=== PATIENT | female | born 1945 | race Caucasian/White ===

== ENCOUNTER → 2018-10-24 | Outpatient (CLI) | payer MEDICARE, OTHER | END | disposition home or self-care (01) | LOC: Rad HDHVI 12:53 | PROVIDERS: ATTEND Internal Medicine | DX: I07.1 Rheumatic tricuspid insufficiency (principal); I11.9 Hypertensive heart disease without heart failure | CPT/HCPCS: 93306 ==

== ENCOUNTER → 2018-11-16 | Outpatient (CLI) | payer MEDICARE, OTHER ==
--- NOTE | 2018-11-16 14:39 | NUR ---
Patient unable to lay on back for images. Study cancelled
[2018-11-16 16:01] LABS: Basophils # (auto) 0.1 uL; Basophils % (auto) 0.8 % (0.0-2.0); Eosinophils # (auto) 0.1 uL; Eosinophils % (auto) 1.3 % (0.0-7.0); Hematocrit 49.7 % (36.0-46.0); Hemoglobin 16.6 g/dL (12.2-16.2); Lymphocytes # (auto) 2.8 uL; Lymphocytes % (auto) 40.5 % (10.0-50.0); Mean Corpuscular Hemoglobin 31.1 pg (28.0-32.0); Mean Corpuscular Hgb Conc. 33.5 g/dL (32.0-36.0); Mean Corpuscular Volume 92.9 fL (80.0-100.0); Monocytes # (auto) 0.7 uL; Monocytes % (auto) 10.7 % (0.0-12.0); Neutrophils # (auto) 3.2 uL; Neutrophils % (auto) 46.7 % (37.0-80.0); Nucleated Red Blood Cells % 0.1 %; Platelet Count (auto) 312 10^3/uL (140-450); Red Blood Cells 5.35 10^6/uL (4.0-5.20); Red Cell Distribution Width 12.6 % (11.8-14.3); White Blood Cell 6.9 10^3/uL (4.4-10.8)
[2018-11-16 16:11] LABS: BUN/Creatinine Ratio 14.5; Calcium 9.7 mg/dL (8.5-10.1); Potassium 3.9 mmol/L (3.5-5.1)
[2018-11-16 16:14] LABS: Bilirubin, Total 0.4 mg/dL (0.2-1.0)
[2018-11-16 16:32] LABS: Urine Blood Negative /uL (Negative); Urine Specific Gravity 1.003 (1.001-1.035)
[2018-11-16 18:47] LABS: Free T4 (Free Thyroxine) 0.89 ng/dL (0.89-1.76)
== END | disposition home or self-care (01) ==
LOC: Rad HDHVI 13:51
PROVIDERS: ATTEND Internal Medicine
DX: E55.9 Vitamin D deficiency, unspecified (principal); E03.9 Hypothyroidism, unspecified; D51.9 Vitamin B12 deficiency anemia, unspecified; N39.0 Urinary tract infection, site not specified; Z79.899 Other long term (current) drug therapy
CPT/HCPCS: 36415; 80053; 80061; 81003; 82306; 82607; 83036; 84439; 84443; 85025

== ENCOUNTER → 2019-07-31 | Outpatient (CLI) | payer MEDICARE, OTHER ==
[2019-07-31 15:53] LABS: Urine Blood Negative /uL (Negative); Urine Specific Gravity 1.015 (1.001-1.035)
[2019-07-31 15:55] LABS: Basophils # (auto) 0.1 10 ^3/uL (0-0.2); Eosinophils # (auto) 0.1 10 ^3/uL (0-0.8); Eosinophils % (auto) 1.6 % (0.0-7.0); Hematocrit 47.4 % (36.0-46.0); Hemoglobin 15.7 g/dL (12.2-16.2); Lymphocytes # (auto) 2.5 10 ^3/uL (0.4-5.4); Lymphocytes % (auto) 41.7 % (10.0-50.0); Mean Corpuscular Hgb Conc. 33.2 g/dL (32.0-36.0); Mean Corpuscular Volume 90.6 fL (80.0-100.0); Monocytes # (auto) 0.7 10 ^3/uL (0-1.3); Monocytes % (auto) 12.3 % (0.0-12.0); Neutrophils # (auto) 2.6 10 ^3/uL (1.6-8.6); Neutrophils % (auto) 43.4 % (37.0-80.0); Nucleated Red Blood Cells % 0.1 %; Platelet Count (auto) 252 10^3/uL (140-450); Red Blood Cells 5.23 10^6/uL (4.0-5.20); Red Cell Distribution Width 14.2 % (11.8-14.3)
[2019-07-31 16:06] LABS: Albumin 3.9 g/dL (3.4-5.0); BUN/Creatinine Ratio 10.4; Calcium 9.2 mg/dL (8.5-10.1); Potassium 4.2 mmol/L (3.5-5.1)
[2019-07-31 16:10] LABS: Bilirubin, Total 0.4 mg/dL (0.2-1.0); Total Protein 7.7 g/dL (6.4-8.2)
[2019-07-31 16:13] LABS: Free T4 (Free Thyroxine) 0.85 ng/dL (0.89-1.76)
== END | disposition home or self-care (01) ==
LOC: LAB 13:27
PROVIDERS: ATTEND Internal Medicine Cardiovascular Disease
DX: E03.9 Hypothyroidism, unspecified (principal); K90.9 Intestinal malabsorption, unspecified; N39.0 Urinary tract infection, site not specified; D51.9 Vitamin B12 deficiency anemia, unspecified; Z79.899 Other long term (current) drug therapy; Z00.00 Encounter for general adult medical examination without abnormal findings
CPT/HCPCS: 36415; 80053; 80061; 81003; 82306; 82607; 83036; 84439; 84443; 85025; 87086

== ENCOUNTER 2021-09-19 14:59 | Inpatient (IN) | payer MEDICARE, OTHER ==
[~2021-09-19] VITALS: Ht 167.6 cm; Wt 84.0 kg
[2021-09-19] MEDS ORDERED: methylPREDNISolone SOD SUCC 125 MG/2 ML VL IV ONE (15:45)
[2021-09-19 17:18] LABS: Basophils # (auto) 0 10 ^3/uL (0-0.2); Basophils % (auto) 0.4 % (0.0-2.0); Eosinophils # (auto) 0.1 10 ^3/uL (0-0.8); Eosinophils % (auto) 0.5 % (0.0-7.0); Hematocrit 46.5 % (36.0-46.0); Hemoglobin 15.4 g/dL (12.2-16.2); Lymphocytes # (auto) 2.7 10 ^3/uL (0.4-5.4); Lymphocytes % (auto) 24.5 % (10.0-50.0); Mean Corpuscular Hemoglobin 29.6 pg (28.0-32.0); Mean Corpuscular Volume 89.6 fL (80.0-100.0); Monocytes # (auto) 1.4 10 ^3/uL (0-1.3); Monocytes % (auto) 13.1 % (0.0-12.0); Neutrophils # (auto) 6.8 10 ^3/uL (1.6-8.6); Neutrophils % (auto) 61.5 % (37.0-80.0); Nucleated Red Blood Cells % 0.1 %
[2021-09-19 17:31] LABS: Albumin 3.4 g/dL (3.4-5.0); BUN/Creatinine Ratio 11.5; Calcium 9.5 mg/dL (8.5-10.1); Magnesium 2.7 mg/dL (1.6-2.6); Potassium 4.1 mmol/L (3.5-5.1)
[2021-09-19 17:34] LABS: Bilirubin, Total 0.5 mg/dL (0.2-1.0); Total Protein 8.1 g/dL (6.4-8.2)
[2021-09-19] MEDS ORDERED: PROMETHAZINE W/CODEINE 5 ML ORAL SYRUP PO ONE (19:45)
[2021-09-19] MEDS ORDERED: ACETAMINOPHEN 325 MG TAB PO ONE (19:45)
[2021-09-19] MEDS ORDERED: ONDANSETRON HCL 4 MG/2 ML VIAL IV PRN (22:45)
[2021-09-19] MEDS ORDERED: predniSONE 20 MG TAB PO ONE (22:45)
[2021-09-20] VITALS: BP 110/66
[2021-09-20] MEDS ORDERED: QUET25TA37 PO (00:58)
[2021-09-20] MEDS ORDERED: BUPR150T8 PO (00:58)
[2021-09-20] MEDS ORDERED: guaiFENesin 200 MG/10 ML UD GT ONE (05:45)
[2021-09-20] MEDS: SODIUM CHLOR 0.9% PF (SALINE LOCK) 10ML VIAL/SYR IV SCH ×3 (06:17→22:00)
[2021-09-20 09:00] VITALS: BP 114/60
[2021-09-20] MEDS ORDERED: ACETAMINOPHEN 500 MG TAB PO ONE (09:15)
[2021-09-20] MEDS ORDERED: MECL25TA18 PO (09:26)
[2021-09-20 13:00] VITALS: BP 107/58
[2021-09-20] MEDS ORDERED: buPROPion HCL 100 MG TAB PO ONE (13:45)
[2021-09-20] MEDS ORDERED: cefTRIAXone 1GM/50ML D5W 50 ML IV ONE (13:45)
[2021-09-20] MEDS ORDERED: methylPREDNISolone SOD SUCC 40 MG/ML VL IV ONE (13:45)
[2021-09-20] MEDS: ACETAMINOPHEN 500 MG TAB PO PRN (15:20)
[2021-09-20] MEDS: methylPREDNISolone SOD SUCC 40 MG/ML VL IV SCH ×2 (15:26→22:01)
[2021-09-20] MEDS: guaiFENesin-DM 100/10mg/5ml SYR PO PRN (16:32)
[2021-09-20 17:00] VITALS: BP 122/70
[2021-09-20 21:49] VITALS: BP 136/70
[2021-09-20] MEDS: QUEtiapine FUMARATE 25 MG TAB PO SCH (22:01)
[2021-09-21] MEDS: guaiFENesin-DM 100/10mg/5ml SYR PO PRN ×4 (00:13→21:39)
[2021-09-21 05:00] VITALS: BP 109/52
[2021-09-21] MEDS: SODIUM CHLOR 0.9% PF (SALINE LOCK) 10ML VIAL/SYR IV SCH ×3 (06:16→21:38)
[2021-09-21] MEDS: methylPREDNISolone SOD SUCC 40 MG/ML VL IV SCH ×3 (06:17→21:38)
[2021-09-21 07:18] LABS: Basophils # (auto) 0 10 ^3/uL (0-0.2); Basophils % (auto) 0.1 % (0.0-2.0); Eosinophils # (auto) 0 10 ^3/uL (0-0.8); Hematocrit 42.6 % (36.0-46.0); Hemoglobin 14.2 g/dL (12.2-16.2); Lymphocytes # (auto) 1.8 10 ^3/uL (0.4-5.4); Lymphocytes % (auto) 9.8 % (10.0-50.0); Mean Corpuscular Hemoglobin 29.9 pg (28.0-32.0); Mean Corpuscular Hgb Conc. 33.4 g/dL (32.0-36.0); Mean Corpuscular Volume 89.7 fL (80.0-100.0); Monocytes # (auto) 1.4 10 ^3/uL (0-1.3); Monocytes % (auto) 7.5 % (0.0-12.0); Neutrophils # (auto) 15.4 10 ^3/uL (1.6-8.6); Neutrophils % (auto) 82.6 % (37.0-80.0); Nucleated Red Blood Cells % 0.1 %; Red Blood Cells 4.75 10^6/uL (4.0-5.20); White Blood Cell 18.6 10^3/uL (4.4-10.8)
[2021-09-21 07:33] LABS: BUN/Creatinine Ratio 22.6; Calcium 9.2 mg/dL (8.5-10.1); Potassium 4.6 mmol/L (3.5-5.1)
[2021-09-21 07:35] LABS: Bilirubin, Total 0.2 mg/dL (0.2-1.0); Total Protein 7.4 g/dL (6.4-8.2)
[2021-09-21] MEDS: cefTRIAXone 1GM/50ML D5W 50 ML IV SCH (08:40)
[2021-09-21] MEDS: ACETAMINOPHEN 500 MG TAB PO PRN ×2 (08:41→14:21)
[2021-09-21 09:00] VITALS: BP 120/63
[2021-09-21] MEDS: buPROPion HCL 100 MG TAB PO SCH (09:41)
[2021-09-21 13:00] VITALS: BP 127/77
[2021-09-21 17:00] VITALS: BP 144/67
[2021-09-21] MEDS: QUEtiapine FUMARATE 25 MG TAB PO SCH (21:38)
[2021-09-21 22:00] VITALS: BP 139/65
[2021-09-22 05:00] VITALS: BP 140/84
[2021-09-22] MEDS: guaiFENesin-DM 100/10mg/5ml SYR PO PRN (05:02)
[2021-09-22] MEDS: SODIUM CHLOR 0.9% PF (SALINE LOCK) 10ML VIAL/SYR IV SCH ×2 (06:09→15:53)
[2021-09-22] MEDS: methylPREDNISolone SOD SUCC 40 MG/ML VL IV SCH ×2 (06:10→15:53)
[2021-09-22 06:25] LABS: Basophils # (auto) 0 10 ^3/uL (0-0.2); Basophils % (auto) 0.1 % (0.0-2.0); Eosinophils # (auto) 0 10 ^3/uL (0-0.8); Hematocrit 44.3 % (36.0-46.0); Lymphocytes # (auto) 1.7 10 ^3/uL (0.4-5.4); Lymphocytes % (auto) 9.1 % (10.0-50.0); Mean Corpuscular Hemoglobin 30.4 pg (28.0-32.0); Mean Corpuscular Hgb Conc. 33.8 g/dL (32.0-36.0); Mean Corpuscular Volume 89.9 fL (80.0-100.0); Monocytes # (auto) 1.1 10 ^3/uL (0-1.3); Neutrophils # (auto) 15.5 10 ^3/uL (1.6-8.6); Neutrophils % (auto) 84.8 % (37.0-80.0); Red Blood Cells 4.92 10^6/uL (4.0-5.20); Red Cell Distribution Width 13.1 % (11.8-14.3); White Blood Cell 18.2 10^3/uL (4.4-10.8)
[2021-09-22 06:41] LABS: Albumin 3.2 g/dL (3.4-5.0); BUN/Creatinine Ratio 26.6; Bilirubin, Total 0.3 mg/dL (0.2-1.0); Calcium 9.4 mg/dL (8.5-10.1); Total Protein 8.1 g/dL (6.4-8.2)
[2021-09-22 07:36] VITALS: BP 142/72
[2021-09-22 08:00] VITALS: BP 142/72
[2021-09-22] MEDS: buPROPion HCL 100 MG TAB PO SCH (09:29)
[2021-09-22] MEDS: cefTRIAXone 1GM/50ML D5W 50 ML IV SCH (09:29)
[2021-09-22 12:00] VITALS: BP 135/54
[2021-09-22 13:19] LABS: Hepatitis A Ab IgM Negative; Hepatitis B Core IgM Negative
[2021-09-22 13:20] LABS: Hepatitis C Antibody Negative (Negative)
[2021-09-22] MEDS ORDERED: METH4PAK PO (14:23)
[2021-09-22] MEDS ORDERED: AZIT500T PO (14:23)
[2021-09-22] MEDS ORDERED: LORA-622 PO (14:23)
[2021-09-22 16:00] VITALS: BP 142/75
[2021-09-22 16:09] VITALS: BP 135/54
== END 2021-09-22 17:51 | disposition home or self-care (01) | DRG 189 ==
LOC: ER 14:59 → WEST WING 22:38
PROVIDERS: ADMIT Internal Medicine; ATTEND Internal Medicine
DX: J96.20 Acute and chronic respiratory failure, unspecified whether with hypoxia or hypercapnia (principal); J44.1 Chronic obstructive pulmonary disease with (acute) exacerbation; B34.9 Viral infection, unspecified; J20.9 Acute bronchitis, unspecified; E66.9 Obesity, unspecified; F32.9 Major depressive disorder, single episode, unspecified; K76.0 Fatty (change of) liver, not elsewhere classified; Z20.822 Contact with and (suspected) exposure to COVID-19; D72.829 Elevated white blood cell count, unspecified; K59.00 Constipation, unspecified; Z99.81 Dependence on supplemental oxygen; Z90.710 Acquired absence of both cervix and uterus; Z88.2 Allergy status to sulfonamides
CPT/HCPCS: 36415; 71046; 76705; 80053; 80074; 83605; 83735; 83880; 84484; 85025; 85379; 87040; 93005; 96374; G0378; J0696

== ENCOUNTER 2022-04-13 18:16 | Emergency (ER) | payer MEDICARE, OTHER ==
[~2022-04-13] VITALS: Ht 162.6 cm; Wt 77.2 kg
[~2022-04-13 18:16] MED LIST: AZIT500T PO; BUPR150T8 PO; LORA-622 PO; MECL25TA18 PO; METH4PAK PO; QUET25TA37 PO
[2022-04-13 20:29] LABS: Urine Bacteria NONE SEEN /hpf (None Seen); Urine Blood Negative /uL (Negative); Urine Specific Gravity 1.005 (1.001-1.035); Urine WBC 1 /hpf (0 - 5)
[2022-04-13 21:49] VITALS: BP 148/77
[2022-04-13] MEDS ORDERED: ACE3T PO (22:30)
[2022-04-13] MEDS ORDERED: HYDROcodone-ACET 5/325MG TAB PO ONE (22:30)
[2022-04-13] MEDS ORDERED: ONDANSETRON ODT 4 MG TAB PO ONE (22:30)
== END 2022-04-13 23:02 | disposition home or self-care (01) ==
LOC: ER 18:16
DX: M54.42 Lumbago with sciatica, left side (principal); J44.9 Chronic obstructive pulmonary disease, unspecified; I10 Essential (primary) hypertension; Z90.710 Acquired absence of both cervix and uterus
CPT/HCPCS: 72100; 81001; 99284; Q0162